=== PATIENT | male | born 1960 ===

== ENCOUNTER 2020-03-27 13:01 | Inpatient (IN) | payer MEDICARE ==
[~2020-03-27] VITALS: Ht 177.8 cm; Wt 106.2 kg
[2020-04-30] VITALS (11 sets, daily range): BP systolic 91–146; BP diastolic 62–95; PULSE 71–113; TEMP 97.7–98.4
[2020-04-30 06:54] LABS: INR 1.3 (0.8-3.0); PROTHROMBIN TIME 14.4 SECONDS (9.7-12.8)
[2020-04-30 06:57] LABS: PARTIAL THROMBOPLASTIN TIME 34.7 SECONDS (26.0-37.0)
[2020-04-30] MEDS ORDERED: PRINIVIL20 MG PO (06:57)
[2020-04-30] MEDS ORDERED: ASPIRIN 81M81 MG/TA2 PO (06:57)
[2020-04-30] MEDS ORDERED: PRILOSEC 20MG20 MG PO (06:58)
[2020-04-30] MEDS ORDERED: ZANAFLEX2 MG PO (06:58)
[2020-04-30] MEDS ORDERED: VITAMIN C500 MG PO (06:59)
[2020-04-30] MEDS ORDERED: NEURONTIN300 MG/CAP PO (07:00)
[2020-04-30] MEDS ORDERED: FOLIC ACID 40400 MCG PO (07:00)
[2020-04-30] MEDS ORDERED: FERREX 150150 MG PO (07:01)
[2020-04-30] MEDS ORDERED: ONE-A-DAY ESSE1 EACH PO (07:02)
[2020-04-30] MEDS ORDERED: COUMADIN 1MG1 MG/TAB PO (07:03)
[2020-04-30] MEDS ORDERED: LIPITOR20 MG PO (07:04)
[2020-04-30] MEDS ORDERED: TOPROL XL 50MG50 MG PO (07:04)
[2020-04-30] MEDS ORDERED: LOVENOX 100100 MG/ML SQ (07:05)
--- NOTE | 2020-04-30 10:46 | NUR ---
PT TO ROOM 332 PER BED WITH REPORT FROM SHARIF FRIEDMAN PACU. PT IS A/O X3, LUNGS CTA, BOWEL SOUNDS ACTIVE. AQUACEL DRESSING TO LEFT HIP CDI. TOES PINK AND WM. IV TO PUMP PER ORDERS. CALL LIGHT IN REACH. PT DRINKING ICE WATER.
--- NOTE | 2020-04-30 18:49 | NUR ---
REPORT TO ASHELY FRIEDMAN.
--- NOTE | 2020-04-30 19:00 | NUR ---
PT REPORTS LLE IS NUMB BUT ABLE TO FEEL SOME TOUCH AT FOOT. ABLE TO MOVE FOOT AND ANKLE. EPIDURAL SITE AMBAR-CDI.
--- NOTE | 2020-04-30 20:30 | NUR ---
PT RESTING IN BED. LABORED BREATHING D/T LT HIP PAIN. SEE MAR FOR PAIN MED GIVEN. USING IS UP 1000CC EFFECTIVELY. D51/2NS INFUSING AT 100CC/HR. JUST VOIDED 500CC ASHANTI CLEAR URINE PER URINAL. PT STILL HAS MILD NUMBNES TO LLE. PLANS TO SIT ON SIDE OF BED TONIGHT. SCD'S/KATRINA HOSE ON BILAT. ICE PACK TO LT HIP. CALL LIGHT IN REACH. BED ALARM SET.
[2020-05-01 01:00] VITALS: BP 120/87; PULSE 88; TEMP 97.9
[2020-05-01 04:00] VITALS: BP 141/83; PULSE 75; TEMP 97.6
[2020-05-01 07:32] VITALS: BP 133/86; PULSE 82; TEMP 98
[2020-05-01 07:45] LABS: HEMATOCRIT 44.4 % (42.0-52.0); HEMOGLOBIN 14.5 g/dl (13.5-18.0)
--- NOTE | 2020-05-01 10:20 | NUR ---
PT OUT TO [facility] WITH THERAPY. ON WAY BACK TO ROOM PT BECAME WOOZY AND LIGHT HEADED FOR A MOMENT THEN WAS ABLE TO AMBULATE BACK TO ROOM WITH THERAPY. DRESSING TO LEFT HIP CDI WITH AQUACEL OVER INCISION. PT IS A/OX3. DENIES N/V. PAIN CONTROLLED WITH PO MEDS.
[2020-05-01 11:03] VITALS: BP 111/80; PULSE 81; TEMP 99.3
--- NOTE | 2020-05-01 12:30 | NUR ---
First visit from the copy coordinator. prayed with patient. No other needs right now.
--- NOTE | 2020-05-01 16:11 | NUR ---
REVIEWED DISCHARGE INSTRUCTIONS AND ANSWERED QUESTIONS. PT TAKEN TO FRONT VIA WC.
--- NOTE | 2020-05-01 17:12 | NUR ---
[facility] Guide met with patient who is discharging today. Patient lives in [place], [place] with his girlfriend, Romana and sees Dr. Espino for primary care. Patient obtains medications from [facility] in [place]. Patient has a cane and walker at home. PT/OT are recommending home for patient and patient states his girlfriend is on her way to pick him up now. No needs identified at this time.
== END 2020-05-01 15:50 | disposition home or self-care (01) | DRG 470 ==
LOC: INPTSU 04-30 05:44 → JCC 04-30 07:30
PROVIDERS: ADMIT Orthopaedic Surgery Sports Medicine
PROC: 0SRB04Z Replacement of Left Hip Joint with Ceramic on Polyethylene Synthetic Substitute, Open Approach (ICD-10-PCS; principal; 2020-04-30 07:30)
DX: M16.12 Unilateral primary osteoarthritis, left hip (principal); M81.0 Age-related osteoporosis without current pathological fracture; I10 Essential (primary) hypertension; K21.9 Gastro-esophageal reflux disease without esophagitis; M06.9 Rheumatoid arthritis, unspecified; Z86.711 Personal history of pulmonary embolism; Z88.0 Allergy status to penicillin
CPT/HCPCS: A9284; C1776; J0690; J1170; J2250; J2370; J2704; J7050; J7120